=== PATIENT | male | born 1965 | race African-American/Black ===

== ENCOUNTER 2016-09-09 02:34 | Emergency (ER) | payer BC ==
[2016-09-09] MEDS ORDERED: NORMAL SALINE 1000 ML 1,000 ML IV PRN (02:48)
--- NOTE | 2016-09-09 02:52 | ER Document Report ---
ED Substance Abuse / Acc. OD - General TRAVEL OUTSIDE OF THE [place] IN LAST 30 DAYS: No <RAJ FARLEY - Last Filed: 09/09/16 03:46> <IVANIA WELSH - Last Filed: 09/09/16 06:21> - General Chief Complaint: ETOH Abuse Stated Complaint: POSSIBLE ETOH Time Seen by Provider: 09/09/16 02:46 Notes: Patient is a 50-year-old male, past medical history heavy intermittent alcohol use, cocaine use, presents by EMS after he was agitated and having hallucinations, witnessed by his . He said that he was drinking tequila, but denies drugs. His thinks that he used crack tonight. He was given 2.5 mg Versed, 50 mg Benadryl, 5 mg Haldol IM and a liter of fluids for the agitation and he is somnolent in the emergency room. Patient will awaken to voice, but denies any symptoms at this time. (RAJ FARLEY) - Related Data Allergies/Adverse Reactions: No Known Allergies Allergy (Unverified 10/04/11 05:34) Past Medical History - General Information source: Patient, Emergency Med Personnel - Social History Smoking Status: Current Every Day Smoker Drug Abuse: Cocaine Family History: Reviewed & Not Pertinent - Past Medical History Cardiac Medical History: Reports: Hx Hypertension - Immunizations Hx Diphtheria, Pertussis, Tetanus Vaccination: No <RAJ FARLEY E - Last Filed: 09/09/16 03:46> Review of Systems <RAJ FARLEY - Last Filed: 09/09/16 03:46> <IVANIA WELSH - Last Filed: 09/09/16 06:21> - Review of Systems Notes: REVIEW OF SYSTEMS: CONSTITUTIONAL: -fevers, -chills EENT: -eye pain, -difficulty swallowing, -nasal congestion CARDIOVASCULAR:-chest pain, -syncope. RESPIRATORY: -cough, -SOB GASTROINTESTINAL: -abdominal pain, - nausea, -vomiting, -diarrhea GENITOURINARY: -dysuria, -hematuria MUSCULOSKELETAL: -back pain, -neck pain SKIN: -rash or skin lesions. HEMATOLOGIC: -easy bruising or bleeding. LYMPHATIC: -swollen, enlarged glands. NEUROLOGICAL: -altered mental status or loss of consciousness, -headache, - neurologic symptoms PSYCHIATRIC: -anxiety, -depression. ALL OTHER SYSTEMS REVIEWED AND NEGATIVE. (RAJ FARLEY) Physical Exam <RAJ FARLEY - Last Filed: 09/09/16 03:46> <IVANIA WELSH - Last Filed: 09/09/16 06:21> - Vital signs Vitals: Resp BP 22 H 110/64 09/09/16 02:40 09/09/16 02:40 - Notes Notes: PHYSICAL EXAMINATION: GENERAL: Well-appearing, well-nourished and in no acute distress. HEAD: Atraumatic, normocephalic. EYES: Pupils constricted, extraocular movements intact, sclera anicteric, conjunctiva are normal. ENT: nares patent, oropharynx clear without exudates. Moist mucous membranes. NECK: Normal range of motion, supple without lymphadenopathy LUNGS: Breath sounds clear to auscultation bilaterally and equal. No wheezes rales or rhonchi. HEART: Tachycardia, regular rhythm ABDOMEN: Soft, nontender, normoactive bowel sounds. No guarding, no rebound. No masses appreciated. EXTREMITIES: Normal range of motion, no pitting or edema. No cyanosis. NEUROLOGICAL: Cranial nerves grossly intact. Normal speech, normal gait. Normal sensory and motor exams. PSYCH: Normal mood, normal affect. SKIN: Warm, Dry, normal turgor, no rashes or lesions noted. (RAJ FARLEY) Course - Laboratory Result Diagrams: 09/09/16 02:48 09/09/16 02:48 - EKG Interpretation by Or EKG shows normal: Sinus rhythm, Palmer, Intervals, QRS Complexes, ST-T Waves Rate: Tachycardia <RAJ FARLEY - Last Filed: 09/09/16 03:46> - Laboratory Result Diagrams: 09/09/16 02:48 09/09/16 02:48 <IVANIA WELSH - Last Filed: 09/09/16 06:21> - Re-evaluation Re-evalutation: Patient resting comfortably in the emergency room. He has a cocaine toxidrome with a mild tachycardia, constricted pupils, elevated CPK and initial agitation. He has mild YOLY and 2 LIVF were provided to him. Will continue to monitor and discharge patient once he is awake and able to ambulate. (RAJ FARLEY) 09/09/16 06:21 Patient is now awake and alert. He is acting appropriately. I did have a talk with the patient about drug use and how this could lead to his in the future and that he was likely that he did have more damage from what happened tonight. Patient's is in the room. Patient shows understanding of this. Patient is now able stand and walk without difficulty. Patient will be discharged home but is encouraged to return to ER anytime if he has any further concerns. is very kind and appreciative of his care here. (IVANIA WELSH) - Vital Signs Vital signs: Temp Pulse Resp BP Pulse Ox 98.6 F 114 H 20 124/90 H 97 09/09/16 02:46 09/09/16 02:46 09/09/16 06:01 09/09/16 06:00 09/09/16 06:01 - Laboratory Laboratory results interpreted by me: 09/09/16 09/09/16 09/09/16 02:46 02:48 02:48 RDW 15.3 H Seg Neutrophils % 81.9 H Sodium 145.8 H Chloride 109 H Creatinine 1.88 H Est GFR ( Amer) 47 L Est GFR (Non-Af Amer) 38 L Glucose 112 H POC Glucose 114 H Creatine Kinase 714 H Salicylates < 1.0 L Acetaminophen < 10 L Discharge <RAJ FARLEY - Last Filed: 09/09/16 03:46> <IVANIA WELSH - Last Filed: 09/09/16 06:21> - Discharge Clinical Impression: Alcohol abuse, Cocaine abuse Condition: Stable Additional Instructions: ACUTE ALCOHOL INTOXICATION and ALCOHOL ABUSE: Your evaluation revealed very high levels of alcohol. You can from drinking a large amount of alcohol rapidly! Further, there's the risk of falls , traffic accidents, and fights. A high portion (about 50 percent) of the serious injuries seen in hospital emergency rooms are caused by alcohol. Alcohol overdosage is usually due to an underlying emotional or psychiatric problem. You may benefit from counselling. If "binge" drinking is an ongoing problem for you, or if you drink ANY AMOUNT of alcohol EVERY day, you most likely have a tendency to alcoholism. You should avoid alcohol totally. We can refer you for treatment. Persons with alcohol problems are often also prone to other addictions -- you should discuss any use of medications or drugs with the doctor. You should be watched at home for the next several hours by someone who has not been drinking. Get extra fluids for the next 24 hours. Call the doctor if there is repeated vomiting, increasing headache, decreasing level of alertness, or any other worsening. CHRONIC ALCOHOLISM and ALCOHOL ABUSE: Your evaluation reveals evidence of chronic alcoholism, an addiction to alcohol. The tendency to alcoholism may be inherited. Chronic use of alcohol weakens muscles, causes fatty deposits in the liver , damages the stomach, makes you more prone to infections, and can cause defects in unborn children. In the long run, brain atrophy and cirrhosis of the liver result. You are also at greater risk for certain types of cancer, such as cancer of the mouth, throat, stomach, and liver. Counselling services are available to help you. In-hospital treatment programs often help. Support groups such as Alcoholics Anonymous can be very useful in beating this addiction. Your physician can make a referral for you. As alcoholics often are prone to other addictions, you should discuss your use of any other medications with the doctor. COCAINE ABUSE: Cocaine causes many dangerous medical problems. Problems can occur even with "usual" amounts. Cocaine affects judgement, creating a sense of invulnerability. Cocaine users often make bad decisions that seem "great" at the time. Most cocaine users eventually will be hurt by bad job performance, damaged personal relations, crime, and unsafe sexual practices. Toxic effects of cocaine can include seizures, hallucinations, delusions, high blood pressure, heart damage, or sudden . There's always the risk of a "bad batch." But heart attacks, brain hemorrhages, or cardiac arrest can occur unpredictably even with "normal" use. Injection of cocaine is risky for abscesses, endocarditis (heart infection) , pneumonia, and AIDS. Withdrawal from cocaine often causes anxiety and drug cravings. Some users become paranoid and psychotic. Many treatment programs are available, but you must make the decision to quit. Medication can be prescribed to control the symptoms of cocaine toxicity (beta blockers or benzodiazepines). Withdrawal symptoms may require tranquilizers. OVERDOSE / INGESTION: You have taken more medication than you should have. After your evaluation and care, it is felt that your overdose is not likely to be harmful or of any significant consequences to you and you are being discharged. In the future, you should be careful not to take more medications than what is prescribed for you. Although your overdose does not seem to be of any danger to you at this time, if you develop any unusual or unexpected symptoms after your discharge, you should return to the Emergency Department immediately for re-evaluation. INSTRUCTIONS FOR HOME CARE FOLLOWING DRUG OVERDOSAGE: The doctor feels it's safe for you to go home. You will need to be observed. If charcoal and a laxative was given to you, expect some loose black stools soon. Take no medications unless approved by a physician, including alcohol. If drowsy, lie on your stomach or side for sleeping to avoid aspiration if vomiting occurs. Take only liquids by mouth until there is no more nausea. FOR THE OBSERVER: Observe the patient for the next 24 hours and call or go to the hospital if any of the following are noted: prolonged or repeated vomiting, difficulty in arousing, convulsions (seizures or fits), fever, persistent cough, breathing that is too slow or too rapid, or confused or bizarre behavior. If a counselling visit has been arranged, make sure the patient attends. Call the physician or poison control if you have questions. FOLLOW-UP CARE: If you have been referred to a physician for follow-up care, call the physician s office for an appointment as you were instructed or within the next two days. If you experience worsening or a significant change in your symptoms, notify the physician immediately or return to the Emergency Department at any time for re-evaluation. Referrals: [facility] [Outside] - Follow up as needed
[2016-09-09 02:58] LABS: ABSOLUTE LYMPHOCYTES (AUTO) 0.9 10^3/uL (0.5-4.7); ABSOLUTE MONOCYTES (AUTO) 0.3 10^3/uL (0.1-1.4); ABSOLUTE NEUT (AUTO) 5.2 10^3/uL (1.7-8.2); BASOPHILS % (AUTO) 0.6 % (0-2); HEMOGLOBIN 13.6 g/dL (13.5-17.0); HGB HCT DIFFERENCE -0.2; LYMPHOCYTES % (AUTO) 13.5 % (13-45); MEAN CORPUSCULAR HEMOGLOBIN 31.3 pg (27.0-33.4); MEAN CORPUSCULAR HGB CONC 33.2 g/dL (32.0-36.0); MEAN CORPUSCULAR VOLUME 94 fl (80-97); RED BLOOD COUNT 4.36 10^6/uL (4.35-5.55); RED CELL DISTRIBUTION WIDTH 15.3 % (11.5-14.0); SEGMENTED NEUTROPHILS % (AUTO) 81.9 % (42-78); WHITE BLOOD COUNT 6.4 10^3/uL (4.0-10.5)
[2016-09-09 03:13] LABS: ALANINE AMINOTRANSFERASE 33 U/L (21-72); ALBUMIN 4.3 g/dL (3.5-5.0); ALCOHOL 31 mg/dL (NONE DETECTED); ALKALINE PHOSPHATASE 76 U/L (38-126); ANION GAP 14 (5-19); ASPARTATE AMINO TRANSFERASE 36 U/L (17-59); BILIRUBIN,DIRECT 0.3 mg/dL (0.0-0.4); BILIRUBIN,TOTAL 0.5 mg/dL (0.2-1.3); BLOOD UREA NITROGEN 16 mg/dL (7-20); CALCIUM 9.4 mg/dL (8.4-10.2); CARBON DIOXIDE 23 mmol/L (22-30); CHLORIDE 109 mmol/L (98-107); CREATINE KINASE 714 U/L (55-170); CREATININE RESULT 1.88 mg/dL (0.52-1.25); GLUCOSE 112 mg/dL (75-110); POTASSIUM 3.6 mmol/L (3.6-5.0); SODIUM 145.8 mmol/L (137-145); TOTAL PROTEIN 7.8 g/dL (6.3-8.2)
[2016-09-09 06:03] LABS: URINE BARBITURATES SCREEN NEGATIVE; URINE METHADONE SCREEN NEGATIVE; URINE OPIATES LOW NEGATIVE; URINE PHENCYCLIDINE SCREEN NEGATIVE
[2016-09-09 06:28] VITALS: BP 140/93
--- NOTE | 2016-09-09 07:52 | EKG REPORT ---
SEVERITY:- ABNORMAL ECG - SINUS TACHYCARDIA BORDERLINE R WAVE PROGRESSION, ANTERIOR LEADS PROLONGED QT INTERVAL : Confirmed by: Christopher Patel MD 09-Sep-2016 07:52:11
== END 2016-09-09 06:37 | disposition home or self-care (01) ==
LOC: ER 02:34
DX: F10.10 Alcohol abuse, uncomplicated (principal); F14.10 Cocaine abuse, uncomplicated; R00.0 Tachycardia, unspecified; R44.3 Hallucinations, unspecified; F17.200 Nicotine dependence, unspecified, uncomplicated
CPT/HCPCS: 93005; 99284; 36415; 82962; 80307 ×4; 82550; 85025; 80053; 93010; J7030

== ENCOUNTER 2017-06-28 06:28 | Inpatient (IN) | payer BC ==
--- NOTE | 2017-06-28 06:48 | ER Document Report ---
ED General - General Chief Complaint: Possible Overdose Stated Complaint: POSSIBLE DRUG INGESTION Time Seen by Provider: 06/28/17 06:47 Notes: 51-year-old -Faro[place] male to the emergency department stating that he feels like maybe he has been drug. Denies drug use but does state he is a recovering addict. Was seen here about 9 months ago for the same. Was found to have cocaine in his system. Patient states that he just does not feel right. Denies shortness of breath, body pain or other issues. TRAVEL OUTSIDE OF THE [place] IN LAST 30 DAYS: No - HPI Onset: Just prior to arrival Onset/Duration: Sudden Quality of pain: Achy Severity: Moderate Pain Level: 3 Associated symptoms: None - Related Data Allergies/Adverse Reactions: No Known Allergies Allergy (Unverified 10/04/11 05:34) Past Medical History - General Information source: Patient - Social History Smoking Status: Smoker,Current Status Unk Frequency of alcohol use: None Drug Abuse: Cocaine Lives with: Family Family History: Reviewed & Not Pertinent Patient has suicidal ideation: No Patient has homicidal ideation: No - Past Medical History Cardiac Medical History: Reports: Hx Hypertension Renal/ Medical History: Denies: Hx Peritoneal Dialysis - Immunizations Hx Diphtheria, Pertussis, Tetanus Vaccination: No Review of Systems - Review of Systems Constitutional: No symptoms reported EENT: No symptoms reported Cardiovascular: Palpitations, Dizziness, Lightheaded. denies: Chest pain Respiratory: No symptoms reported Gastrointestinal: No symptoms reported Genitourinary: No symptoms reported Male Genitourinary: No symptoms reported Musculoskeletal: No symptoms reported Skin: No symptoms reported Hematologic/Lymphatic: No symptoms reported Neurological/Psychological: Confusion. denies: Weakness, Paralysis, Seizure, Lost consciousness, Speech impairment, Numbness Physical Exam - Vital signs Vitals: Resp Pulse Ox 29 H 96 06/28/17 06:46 06/28/17 06:46 Interpretation: Tachycardic - General General appearance: Appears well, Alert - HEENT Head: Normocephalic, Atraumatic Eyes: Normal Pupils: PERRL - Respiratory Respiratory status: No respiratory distress Chest status: Nontender Breath sounds: Normal Chest palpation: Normal - Cardiovascular Rhythm: Tachycardia Heart sounds: Normal auscultation Murmur: No - Abdominal Inspection: Normal Distension: No distension Bowel sounds: Normal Tenderness: Nontender Organomegaly: No organomegaly - Back Back: Normal, Nontender - Extremities General upper extremity: Normal inspection, Nontender, Normal color, Normal ROM , Normal temperature General lower extremity: Normal inspection, Nontender, Normal color, Normal ROM , Normal temperature, Normal weight bearing. No: Maikel's sign - Neurological Neuro grossly intact: Yes Cognition: Normal Orientation: AAOx4 Kimball Coma Scale Eye Opening: Spontaneous Kimball Coma Scale Verbal: Oriented Gely Coma Scale Motor: Obeys Commands Kimball Coma Scale Total: 15 Speech: Normal Motor strength normal: LUE, RUE, LLE, RLE Sensory: Normal - Psychological Associated symptoms: Normal affect, Normal mood - Skin Skin Temperature: Warm Skin Moisture: Dry Skin Color: Normal Course - Re-evaluation Re-evalutation: 06/28/17 10:20 Patient tachycardic in the 130s. EKG shows a sinus tachycardia with no acute pathology. Anticipate patient is having some sort of sympathomimetic response from cocaine or methamphetamines. Urinalysis confirmed cocaine suspicion. Benzodiazepines given as well as IV fluids. Patient's creatinine kinase significantly elevated. Will repeat after liter of fluid. Chest x-ray unremarkable. Will repeat bolus of fluid and cardiac labs and reassess. 06/28/17 11:39 Patient has been reevaluated. Is resting comfortably at this time in no acute distress. Repeating basic labs at this time. 06/28/17 13:41 Repeat troponin slightly elevated. Creatinine kinase still elevated. At this time uncomfortable discharging. Consulted with Dr. Garrido who agrees to admit at this time. 06/28/17 13:42 Laboratory 06/28/17 06/28/17 06/28/17 06:50 06:50 06:50 WBC 10.4 RBC 4.58 Hgb 14.2 Hct 42.9 MCV 94 MCH 30.9 MCHC 33.0 RDW 15.4 H Plt Count 203 Seg Neutrophils % 74.7 Lymphocytes % 19.2 Monocytes % 5.2 Eosinophils % 0.0 Basophils % 0.9 Absolute Neutrophils 7.8 Absolute Lymphocytes 2.0 Absolute Monocytes 0.5 Absolute Eosinophils 0.0 Absolute Basophils 0.1 Sodium 149.0 H Potassium 4.4 Chloride 106 Carbon Dioxide 29 Anion Gap 14 BUN 13 Creatinine 1.23 Est GFR ( Amer) > 60 Est GFR (Non-Af Amer) > 60 Glucose 123 H Calcium 10.1 Total Bilirubin 0.4 Direct Bilirubin 0.3 Neonat Total Bilirubin Not Reportable Neonat Direct Bilirubin Not Reportable Neonat Indirect Bili Not Reportable AST 69 H ALT 51 Alkaline Phosphatase 84 Creatine Kinase 4418 H Total Creatine Kinase CK-MM (CK-3) CK-MB (CK-2) 8.86 H CK-BB (CK-1) Macro CK Type I Troponin I NT-Pro-B Natriuret Pep Total Protein 8.0 Albumin 4.6 Urine Color Urine Appearance Urine pH Ur Specific [place] Urine Protein Urine Glucose (UA) Urine Ketones Urine Blood Urine Nitrite Urine Bilirubin Urine Urobilinogen Ur Leukocyte Esterase Urine WBC (Auto) Urine RBC (Auto) U Hyaline Cast (Auto) Squamous Epi Cells Auto Urine Mucus (Auto) Urine Ascorbic Acid Urine Opiates Screen Urine Methadone Screen Ur Barbiturates Screen Ur Phencyclidine Scrn Ur Amphetamines Screen U Benzodiazepines Scrn Urine Cocaine Screen U Marijuana (THC) Screen Serum Alcohol 06/28/17 06/28/17 06/28/17 06:50 06:50 07:40 WBC RBC Hgb Hct MCV MCH MCHC RDW Plt Count Seg Neutrophils % Lymphocytes % Monocytes % Eosinophils % Basophils % Absolute Neutrophils Absolute Lymphocytes Absolute Monocytes Absolute Eosinophils Absolute Basophils Sodium Potassium Chloride Carbon Dioxide Anion Gap BUN Creatinine Est GFR ( Amer) Est GFR (Non-Af Amer) Glucose Calcium Total Bilirubin Direct Bilirubin Neonat Total Bilirubin Neonat Direct Bilirubin Neonat Indirect Bili AST ALT Alkaline Phosphatase Creatine Kinase Total Creatine Kinase CK-MM (CK-3) CK-MB (CK-2) CK-BB (CK-1) Macro CK Type I Troponin I 0.020 NT-Pro-B Natriuret Pep 197 H Total Protein Albumin Urine Color Urine Appearance Urine pH Ur Specific [place] Urine Protein Urine Glucose (UA) Urine Ketones Urine Blood Urine Nitrite Urine Bilirubin Urine Urobilinogen Ur Leukocyte Esterase Urine WBC (Auto) Urine RBC (Auto) U Hyaline Cast (Auto) Squamous Epi Cells Auto Urine Mucus (Auto) Urine Ascorbic Acid Urine Opiates Screen NEGATIVE Urine Methadone Screen NEGATIVE Ur Barbiturates Screen NEGATIVE Ur Phencyclidine Scrn NEGATIVE Ur Amphetamines Screen NEGATIVE U Benzodiazepines Scrn NEGATIVE Urine Cocaine Screen UNCONFIRMED POSITIVE U Marijuana (THC) Screen NEGATIVE Serum Alcohol < 10 06/28/17 06/28/17 06/28/17 07:40 10:44 10:44 WBC RBC Hgb Hct MCV MCH MCHC RDW Plt Count Seg Neutrophils % Lymphocytes % Monocytes % Eosinophils % Basophils % Absolute Neutrophils Absolute Lymphocytes Absolute Monocytes Absolute Eosinophils Absolute Basophils Sodium Potassium Chloride Carbon Dioxide Anion Gap BUN Creatinine Est GFR ( Amer) Est GFR (Non-Af Amer) Glucose Calcium Total Bilirubin Direct Bilirubin Neonat Total Bilirubin Neonat Direct Bilirubin Neonat Indirect Bili AST ALT Alkaline Phosphatase Creatine Kinase Cancelled Total Creatine Kinase CK-MM (CK-3) CK-MB (CK-2) CK-BB (CK-1) Macro CK Type I Troponin I Cancelled NT-Pro-B Natriuret Pep Total Protein Albumin Urine Color YELLOW Urine Appearance SLIGHTLY-CLOUDY Urine pH 6.0 Ur Specific [place] 1.016 Urine Protein 30 H Urine Glucose (UA) NEGATIVE Urine Ketones NEGATIVE Urine Blood SMALL H Urine Nitrite NEGATIVE Urine Bilirubin NEGATIVE Urine Urobilinogen NEGATIVE Ur Leukocyte Esterase NEGATIVE Urine WBC (Auto) 1 Urine RBC (Auto) 1 U Hyaline Cast (Auto) 16 Squamous Epi Cells Auto <1 Urine Mucus (Auto) RARE Urine Ascorbic Acid NEGATIVE Urine Opiates Screen Urine Methadone Screen Ur Barbiturates Screen Ur Phencyclidine Scrn Ur Amphetamines Screen U Benzodiazepines Scrn Urine Cocaine Screen U Marijuana (THC) Screen Serum Alcohol 06/28/17 06/28/17 06/28/17 10:44 11:49 11:49 WBC RBC Hgb Hct MCV MCH MCHC RDW Plt Count Seg Neutrophils % Lymphocytes % Monocytes % Eosinophils % Basophils % Absolute Neutrophils Absolute Lymphocytes Absolute Monocytes Absolute Eosinophils Absolute Basophils Sodium Potassium Chloride Carbon Dioxide Anion Gap BUN Creatinine Est GFR ( Amer) Est GFR (Non-Af Amer) Glucose Calcium Total Bilirubin Direct Bilirubin Neonat Total Bilirubin Neonat Direct Bilirubin Neonat Indirect Bili AST ALT Alkaline Phosphatase Creatine Kinase 4317 H Total Creatine Kinase Cancelled CK-MM (CK-3) Cancelled CK-MB (CK-2) Cancelled CK-BB (CK-1) Cancelled Macro CK Type I Cancelled Troponin I 0.040 NT-Pro-B Natriuret Pep Total Protein Albumin Urine Color Urine Appearance Urine pH Ur Specific [place] Urine Protein Urine Glucose (UA) Urine Ketones Urine Blood Urine Nitrite Urine Bilirubin Urine Urobilinogen Ur Leukocyte Esterase Urine WBC (Auto) Urine RBC (Auto) U Hyaline Cast (Auto) Squamous Epi Cells Auto Urine Mucus (Auto) Urine Ascorbic Acid Urine Opiates Screen Urine Methadone Screen Ur Barbiturates Screen Ur Phencyclidine Scrn Ur Amphetamines Screen U Benzodiazepines Scrn Urine Cocaine Screen U Marijuana (THC) Screen Serum Alcohol Chest X-Ray 06/28/17 06:55 IMPRESSION: No acute cardiopulmonary findings. - Vital Signs Vital signs: Temp Pulse Resp BP Pulse Ox 28 H 154/110 H 94 06/28/17 09:00 06/28/17 09:00 06/28/17 09:00 Laboratory 06/28/17 06/28/17 06/28/17 06:50 06:50 06:50 WBC 10.4 RBC 4.58 Hgb 14.2 Hct 42.9 MCV 94 MCH 30.9 MCHC 33.0 RDW 15.4 H Plt Count 203 Seg Neutrophils % 74.7 Lymphocytes % 19.2 Monocytes % 5.2 Eosinophils % 0.0 Basophils % 0.9 Absolute Neutrophils 7.8 Absolute Lymphocytes 2.0 Absolute Monocytes 0.5 Absolute Eosinophils 0.0 Absolute Basophils 0.1 Sodium 149.0 H Potassium 4.4 Chloride 106 Carbon Dioxide 29 Anion Gap 14 BUN 13 Creatinine 1.23 Est GFR ( Amer) > 60 Est GFR (Non-Af Amer) > 60 Glucose 123 H Calcium 10.1 Total Bilirubin 0.4 Direct Bilirubin 0.3 Neonat Total Bilirubin Not Reportable Neonat Direct Bilirubin Not Reportable Neonat Indirect Bili Not Reportable AST 69 H ALT 51 Alkaline Phosphatase 84 Creatine Kinase 4418 H CK-MB (CK-2) 8.86 H Troponin I NT-Pro-B Natriuret Pep Total Protein 8.0 Albumin 4.6 Urine Color Urine Appearance Urine pH Ur Specific [place] Urine Protein Urine Glucose (UA) Urine Ketones Urine Blood Urine Nitrite Urine Bilirubin Urine Urobilinogen Ur Leukocyte Esterase Urine WBC (Auto) Urine RBC (Auto) U Hyaline Cast (Auto) Squamous Epi Cells Auto Urine Mucus (Auto) Urine Ascorbic Acid Urine Opiates Screen Urine Methadone Screen Ur Barbiturates Screen Ur Phencyclidine Scrn Ur Amphetamines Screen U Benzodiazepines Scrn Urine Cocaine Screen U Marijuana (THC) Screen Serum Alcohol 06/28/17 06/28/17 06/28/17 06:50 06:50 07:40 WBC RBC Hgb Hct MCV MCH MCHC RDW Plt Count Seg Neutrophils % Lymphocytes % Monocytes % Eosinophils % Basophils % Absolute Neutrophils Absolute Lymphocytes Absolute Monocytes Absolute Eosinophils Absolute Basophils Sodium Potassium Chloride Carbon Dioxide Anion Gap BUN Creatinine Est GFR ( Amer) Est GFR (Non-Af Amer) Glucose Calcium Total Bilirubin Direct Bilirubin Neonat Total Bilirubin Neonat Direct Bilirubin Neonat Indirect Bili AST ALT Alkaline Phosphatase Creatine Kinase CK-MB (CK-2) Troponin I 0.020 NT-Pro-B Natriuret Pep 197 H Total Protein Albumin Urine Color Urine Appearance Urine pH Ur Specific [place] Urine Protein Urine Glucose (UA) Urine Ketones Urine Blood Urine Nitrite Urine Bilirubin Urine Urobilinogen Ur Leukocyte Esterase Urine WBC (Auto) Urine RBC (Auto) U Hyaline Cast (Auto) Squamous Epi Cells Auto Urine Mucus (Auto) Urine Ascorbic Acid Urine Opiates Screen NEGATIVE Urine Methadone Screen NEGATIVE Ur Barbiturates Screen NEGATIVE Ur Phencyclidine Scrn NEGATIVE Ur Amphetamines Screen NEGATIVE U Benzodiazepines Scrn NEGATIVE Urine Cocaine Screen UNCONFIRMED POSITIVE U Marijuana (THC) Screen NEGATIVE Serum Alcohol < 10 06/28/17 07:40 WBC RBC Hgb Hct MCV MCH MCHC RDW Plt Count Seg Neutrophils % Lymphocytes % Monocytes % Eosinophils % Basophils % Absolute Neutrophils Absolute Lymphocytes Absolute Monocytes Absolute Eosinophils Absolute Basophils Sodium Potassium Chloride Carbon Dioxide Anion Gap BUN Creatinine Est GFR ( Amer) Est GFR (Non-Af Amer) Glucose Calcium Total Bilirubin Direct Bilirubin Neonat Total Bilirubin Neonat Direct Bilirubin Neonat Indirect Bili AST ALT Alkaline Phosphatase Creatine Kinase CK-MB (CK-2) Troponin I NT-Pro-B Natriuret Pep Total Protein Albumin Urine Color YELLOW Urine Appearance SLIGHTLY-CLOUDY Urine pH 6.0 Ur Specific [place]rose 1.016 Urine Protein 30 H Urine Glucose (UA) NEGATIVE Urine Ketones NEGATIVE Urine Blood SMALL H Urine Nitrite NEGATIVE Urine Bilirubin NEGATIVE Urine Urobilinogen NEGATIVE Ur Leukocyte Esterase NEGATIVE Urine WBC (Auto) 1 Urine RBC (Auto) 1 U Hyaline Cast (Auto) 16 Squamous Epi Cells Auto <1 Urine Mucus (Auto) RARE Urine Ascorbic Acid NEGATIVE Urine Opiates Screen Urine Methadone Screen Ur Barbiturates Screen Ur Phencyclidine Scrn Ur Amphetamines Screen U Benzodiazepines Scrn Urine Cocaine Screen U Marijuana (THC) Screen Serum Alcohol Chest X-Ray 06/28/17 06:55 IMPRESSION: No acute cardiopulmonary findings. - Laboratory Result Diagrams: 06/28/17 06:50 06/28/17 06:50 Laboratory results interpreted by me: 06/28/17 06/28/17 06/28/17 06:50 06:50 06:50 RDW 15.4 H Sodium 149.0 H Glucose 123 H AST 69 H Creatine Kinase 4418 H CK-MB (CK-2) 8.86 H NT-Pro-B Natriuret Pep Urine Protein Urine Blood 06/28/17 06/28/17 06/28/17 06:50 07:40 11:49 RDW Sodium Glucose AST Creatine Kinase 4317 H CK-MB (CK-2) NT-Pro-B Natriuret Pep 197 H Urine Protein 30 H Urine Blood SMALL H - EKG Interpretation by Nd EKG shows normal: [place], Intervals, QRS Complexes, ST-T Waves Rate: Tachycardia Critical Care Note - Critical Care Note Total time excluding time spent on procedures (mins): 60 Comments: Tachycardia, hypertension, drug-induced toxicity Discharge - Discharge Clinical Impression: Cocaine abuse, Tachycardia Condition: Good Disposition: ADMITTED OBSERVATION Admitting Provider: [facility] Unit Admitted: Telemetry Referrals: GOLDIE CRONIN MD [Primary Care Provider] - Follow up as needed
[2017-06-28] MEDS ORDERED: LORAZEPAM INJ 2 MG/1 ML VIAL IV ONE (06:55)
[2017-06-28 07:05] LABS: ABSOLUTE BASOPHILS # (AUTO) 0.1 10^3/uL (0.0-0.2); ABSOLUTE MONOCYTES (AUTO) 0.5 10^3/uL (0.1-1.4); ABSOLUTE NEUT (AUTO) 7.8 10^3/uL (1.7-8.2); BASOPHILS % (AUTO) 0.9 % (0-2); HEMATOCRIT 42.9 % (37.9-51.0); HEMOGLOBIN 14.2 g/dL (13.5-17.0); LYMPHOCYTES % (AUTO) 19.2 % (13-45); MEAN CORPUSCULAR HEMOGLOBIN 30.9 pg (27.0-33.4); MEAN CORPUSCULAR VOLUME 94 fl (80-97); MONOCYTES % (AUTO) 5.2 % (3-13); PLATELET COUNT 203 10^3/uL (150-450); RED BLOOD COUNT 4.58 10^6/uL (4.35-5.55); RED CELL DISTRIBUTION WIDTH 15.4 % (11.5-14.0); SEGMENTED NEUTROPHILS % (AUTO) 74.7 % (42-78); TOTAL CELLS COUNTED % (AUTO) 100 %; WHITE BLOOD COUNT 10.4 10^3/uL (4.0-10.5)
[2017-06-28 07:25] LABS: ALANINE AMINOTRANSFERASE 51 U/L (21-72); ALBUMIN 4.6 g/dL (3.5-5.0); ALKALINE PHOSPHATASE 84 U/L (38-126); ANION GAP 14 (5-19); ASPARTATE AMINO TRANSFERASE 69 U/L (17-59); BILIRUBIN,DIRECT 0.3 mg/dL (0.0-0.4); BILIRUBIN,TOTAL 0.4 mg/dL (0.2-1.3); BLOOD UREA NITROGEN 13 mg/dL (7-20); CALCIUM 10.1 mg/dL (8.4-10.2); CARBON DIOXIDE 29 mmol/L (22-30); CHLORIDE 106 mmol/L (98-107); GLUCOSE 123 mg/dL (75-110); POTASSIUM 4.4 mmol/L (3.6-5.0)
--- NOTE | 2017-06-28 07:28 | RADIOLOGY REPORT (SQ) ---
EXAM DESCRIPTION: CHEST SINGLE VIEW CLINICAL HISTORY: 51 years Male, sob COMPARISON: 4.29.15. NUMBER OF VIEWS/TECHNIQUE: 1/AP FINDINGS: Adequate lung volume, clear parenchyma, normal cardiac silhouette, and intact bony thorax. IMPRESSION: No acute cardiopulmonary findings.
[2017-06-28 07:37] LABS: TROPONIN I 0.02 ng/mL
[2017-06-28 07:43] LABS: CREATINE KINASE 4418 U/L (55-170)
[2017-06-28 08:09] LABS: APPEARANCE,URINE SLIGHTLY-CLOUDY; BILIRUBIN,URINE NEGATIVE (NEGATIVE); COLOR,URINE YELLOW; GLUCOSE, URINE NEGATIVE (NEGATIVE); KETONES,URINE NEGATIVE (NEGATIVE); LEUKOCYTE ESTERASE,URINE NEGATIVE (NEGATIVE); NITRITE,URINE NEGATIVE (NEGATIVE); PROTEIN,URINE 30 mg/dL (NEGATIVE); URINE SPECIFIC GRAVITY 1.016; UROBILINOGEN,URINE NEGATIVE mg/dL (<2.0)
[2017-06-28 08:22] LABS: URINE AMPHETAMINES SCREEN NEGATIVE; URINE BARBITURATES SCREEN NEGATIVE; URINE BENZODIAZEPINES SCREEN NEGATIVE; URINE COCAINE SCREEN UNCONFIRMED POSITIVE; URINE MARIJUANA (THC) SCREEN NEGATIVE; URINE METHADONE SCREEN NEGATIVE; URINE PHENCYCLIDINE SCREEN NEGATIVE
--- NOTE | 2017-06-28 08:29 | EKG REPORT ---
SEVERITY:- OTHERWISE NORMAL ECG - SINUS TACHYCARDIA : Confirmed by: Christopher Patel MD 28-Jun-2017 08:28:38
[2017-06-28] MEDS ORDERED: NORMAL SALINE 1000 ML 1,000 ML IV ONE (10:07)
[2017-06-28 16:43] LABS: FREE T4 (FREE THYROXINE) 0.79 ng/dL (0.78-2.19)
[2017-06-28 16:50] LABS: ANION GAP 8 (5-19); BLOOD UREA NITROGEN 12 mg/dL (7-20); CALCIUM 9.5 mg/dL (8.4-10.2); CARBON DIOXIDE 32 mmol/L (22-30); CHLORIDE 106 mmol/L (98-107); GLUCOSE 89 mg/dL (75-110); SODIUM 145.5 mmol/L (137-145)
[2017-06-28 16:57] LABS: THYROID STIMULATING HORMONE 0.4 uIU/mL (0.47-4.68)
[2017-06-28] MEDS ORDERED: ENOXAPARIN SODIUM INJ 40 MG/0.4 ML DISP.SYRIN SUBCUT ONE (17:00)
[2017-06-28 18:43] LABS: CREATINE KINASE MB 9.79 ng/mL (<4.55); TROPONIN I 0.019 ng/mL
[2017-06-29 00:40] LABS: TROPONIN I < 0.012 ng/mL
[2017-06-29] MEDS: NORMAL SALINE 1000 ML 1,000 ML IV PRN ×2 (05:38→21:05)
[2017-06-29 07:19] LABS: TROPONIN I < 0.012 ng/mL
[2017-06-29] MEDS: FLUTICASONE NASAL SPRAY 50 MCG/SPRY 120 SPRAY/16 GM NAREB SCH ×2 (11:14→21:05)
[2017-06-29] MEDS: ENOXAPARIN SODIUM INJ 40 MG/0.4 ML DISP.SYRIN SUBCUT SCH (11:14)
[2017-06-29 13:19] LABS: TROPONIN I < 0.012 ng/mL
--- NOTE | 2017-06-29 14:26 | PDOC H&P ---
History of Present Illness Admission Date/PCP: 06/28/17 13:59 GOLDIE CRONIN MD Patient complains of: Not feel right History of Present Illness: DILMA CADENA is a 51 year old male This is a 51-year-old male with a history of the hypertension and hyperlipidemia came to the emergency department he thought somebody give her drugs to him in patients do not feel right Patient's denied any drug abuse in the past but according to the record but patient was seen in 9 months back in the ER for the same problems and patient urine drug screen is consistent with the cocaine Patient's troponin is elevated in patients CPK was elevated decided to admit for further evaluations for the rhabdomyolysis and possible cocaine induce some side effect and intoxications And I saw the patient's patients denied any chest pain denied any shortness of the breath denied any muscle ache patients feel like pretty much back to normal Past Medical History Cardiac Medical History: Reports: Hypertension Social History Lives with: Family Smoking Status: Current Every Day Smoker Hx Recreational Drug Use: Yes Drugs: Cocaine - Advance Directive Resuscitation Status: Full Code Family History Family History: Reviewed & Not Pertinent Parental Family History Reviewed: Yes Children Family History Reviewed: Yes Sibling(s) Family History Reviewed.: Yes Medication/Allergy Home Medications: Fluticasone Propionate [Flonase Nasal [place] 50 Mcg/[place] 16 gm] 1 spray NAREB Q12 06/28/17 Valsartan/Hydrochlorothiazide [Valsartan-Hctz 320-25 mg Tab] 1 tab PO DAILY Allergies/Adverse Reactions: No Known Allergies Allergy (Unverified 10/04/11 05:34) Review of Systems Constitutional: ABSENT: chills, fever(s), headache(s), weight gain, weight loss Eyes: ABSENT: visual disturbances Ears: ABSENT: hearing changes Cardiovascular: ABSENT: chest pain, dyspnea on exertion, edema, orthropnea, palpitations Respiratory: ABSENT: cough, hemoptysis Gastrointestinal: ABSENT: abdominal pain, constipation, diarrhea, hematemesis, hematochezia, nausea, vomiting Genitourinary: ABSENT: dysuria, hematuria Musculoskeletal: ABSENT: joint swelling Integumentary: ABSENT: rash, wounds Neurological: ABSENT: abnormal gait, abnormal speech, confusion, dizziness, focal weakness, syncope Psychiatric: ABSENT: anxiety, depression, homidical ideation, suicidal ideation Endocrine: ABSENT: cold intolerance, heat intolerance, menstrual abnormalities, polydipsia, polyuria Hematologic/Lymphatic: ABSENT: easy bleeding, easy bruising, lymphadenopathy Physical Exam Vital Signs: Temp Pulse Resp BP Pulse Ox 97.9 F 83 16 168/106 H 97 06/29/17 12:00 06/29/17 12:00 06/29/17 12:00 06/29/17 12:00 06/29/17 12:00 Intake & Output 06/28/17 06/29/17 06/30/17 06:59 06:59 06:59 Intake Total 1650 Balance 1650 Weight 123.3 kg General appearance: PRESENT: no acute distress, well-developed, well-nourished Head exam: PRESENT: atraumatic, normocephalic Eye exam: PRESENT: conjunctiva pink, EOMI, PERRLA. ABSENT: scleral icterus Ear exam: PRESENT: normal external ear exam Mouth exam: PRESENT: moist, tongue midline Neck exam: PRESENT: full ROM. ABSENT: carotid bruit, JVD, lymphadenopathy, thyromegaly Respiratory exam: PRESENT: clear to auscultation ander Cardiovascular exam: PRESENT: RRR. ABSENT: diastolic murmur, rubs, systolic murmur Pulses: PRESENT: normal dorsalis pedis pul, +2 pedal pulses bilateral Vascular exam: PRESENT: normal capillary refill GI/Abdominal exam: PRESENT: normal bowel sounds, soft. ABSENT: distended, guarding, mass, organolmegaly, rebound, tenderness Rectal exam: PRESENT: deferred Extremities exam: ABSENT: pedal edema Musculoskeletal exam: PRESENT: ambulatory Neurological exam: PRESENT: alert, awake, oriented to person, oriented to place , oriented to time, oriented to situation, CN II-XII grossly intact. ABSENT: motor sensory deficit Psychiatric exam: PRESENT: appropriate affect, normal mood. ABSENT: homicidal ideation, suicidal ideation Skin exam: PRESENT: dry, intact, warm. ABSENT: cyanosis, rash Results Laboratory Results: 06/28/17 16:20 06/28/17 16:20 Sodium 145.5 H Potassium 4.0 Chloride 106 Carbon Dioxide 32 H Anion Gap 8 BUN 12 Creatinine 1.02 Est GFR ( Amer) > 60 Est GFR (Non-Af Amer) > 60 Glucose 89 Calcium 9.5 06/28/17 06/28/17 06/29/17 17:56 17:56 00:06 Creatine Kinase 4903 H 5529 H CK-MB (CK-2) 9.79 H Troponin I 0.019 06/29/17 06/29/17 06/29/17 00:06 06:11 06:11 Creatine Kinase 4512 H CK-MB (CK-2) 11.30 H 13.30 H Troponin I < 0.012 < 0.012 06/29/17 06/29/17 12:29 12:29 Creatine Kinase 4454 H CK-MB (CK-2) 12.50 H Troponin I < 0.012 Impressions: Chest X-Ray 06/28/17 06:55 IMPRESSION: No acute cardiopulmonary findings. Assessment & Plan - Diagnosis (1) Rhabdomyolysis Qualifiers: Rhabdomyolysis type: non-traumatic Qualified Code(s): M62.82 - Rhabdomyolysis Is this a current diagnosis for this admission?: Yes Plan: Most likely a drug-induced rhabdomyolysis continues IV fluid (2) Hypertension Qualifiers: Hypertension type: essential hypertension Qualified Code(s): I10 - Essential (primary) hypertension Is this a current diagnosis for this admission?: Yes (3) Cocaine abuse Is this a current diagnosis for this admission?: Yes Plan: Discussed with the patient about the drug abuse patient's currently denied to be put the psych consult (4) Tachycardia Is this a current diagnosis for this admission?: Yes Plan: We will get the 2D echocardiogram and also get the CT angiogram - Time Time Spent: 30 to 50 Minutes Medications reviewed and adjusted accordingly: Yes Anticipated discharge: Home Within: Other - Inpatient Certification Medical Necessity: Need Close Monitoring Due to Risk of Patient Decompensation, Need For IV Fluids Post Hospital Care: D/C [employer] Documentation - Plan Summary Plan Summary: Continues to IV fluid we will consult the cardiology because cocaine induce toxicity to rule out underlying cardiac issues will get the CT angiogram
--- NOTE | 2017-06-29 16:21 | RADIOLOGY REPORT (SQ) ---
EXAM DESCRIPTION: CTA CHEST COMPLETED DATE/TIME: 06/29/2017 2:32 pm REASON FOR STUDY: chest pain COMPARISON: CT angio chest 10/21/2009 Chest films 10/04/2011, 06/28/2014, 06/28/2017 TECHNIQUE: CT scan of the chest performed using helical scanning technique with dynamic intravenous contrast injection. Images reviewed with lung, soft tissue and bone windows. Reconstructed coronal and sagittal MPR images reviewed. Additional 3 dimensional post-processing performed to develop Maximal Intensity Projection images (FL P). All images stored on PACS. All CT scanners at this facility use dose modulation, iterative reconstruction, and/or weight based d osing when appropriate to reduce radiation dose to as low as reasonably achievable (ALARA). [facility]: Dose Right [facility]: CareDose [facility]: Dose Right [facility]: Teradose 4D [facility]: Dyn CONTRAST TYPE AND DOSE: contrast/concentration: Isovue 370.00 mg/ml; Total Contrast Delivered: 78.0 ml; Total Saline Delivered: 110.0 ml Contrast bolus optimized for the pulmonary arteries. Not diagnostic for the aorta. RENAL FUNCTION: Creatinine 1.0 RADIATION DOSE: CT Rad equipment meets quality standard of care and radiation dose reduction techniq ues were employed. CTDIvol: 11.3 - 15.5 mGy. DLP: 553 mGy-cm. . LIMITATIONS: Limited contrast bolus, thoracic aorta not effectively contrasted. Limited contrast in the pulmonary arteries FINDINGS: LUNGS AND PLEURA: No masses, infiltrates, pneumothorax. No pleural effusions, calcificati ons. AORTA AND GREAT VESSELS: No aneurysm. Contrast bolus not optimized for the aorta. HEART: No pericardial effusion. Moderate proximal LAD coronary artery calcification. PULMONARY ARTERIES: No emboli visualized in the main pulmonary arteries or the proximal segmental bra nches. HILAR AND MEDIASTINAL STRUCTURES: No identified masses or abnormal nodes. HARDWARE: None in the chest. UPPER ABDOMEN: No significant findings. Limited exam. THYROID AND OTHER SOFT TISSUES: No masses. No adenopathy. BONES: No acute or significant finding. 3D MIPS: Confirm above findings. OTHER: No other significant finding. IMPRESSION: No acute findings. No CT angio evidence of acute pulmonary emboli to the main, right or left lobar, or proximal segmental pulmonary arteries. COMMENT: Quality ID # [id number]: Final reports with documentation of one or more dose reduction techniques (e.g., Automated exposure control, adjustment of the mA and/or kV according to patient size, use of iterative reconstruction technique) TECHNICAL DOCUMENTATION: JOB ID: [id number] [email or web address]- All Rights Reserved Reading location - IP/workstation name: [facility]
[2017-06-29 19:35] LABS: CREATINE KINASE MB 9.62 ng/mL (<4.55)
[2017-06-29 19:40] LABS: TROPONIN I < 0.012 ng/mL
[2017-06-29] MEDS: VALSARTAN 160 MG TABLET PO SCH (21:06)
[2017-06-30 02:06] LABS: CREATINE KINASE MB 7.65 ng/mL (<4.55)
[2017-06-30 02:12] LABS: TROPONIN I < 0.012 ng/mL
[2017-06-30 06:19] LABS: ABSOLUTE BASOPHILS # (AUTO) 0.1 10^3/uL (0.0-0.2); ABSOLUTE EOSINOPHILS # (AUTO) 0.1 10^3/uL (0.0-0.6); ABSOLUTE LYMPHOCYTES (AUTO) 2.3 10^3/uL (0.5-4.7); ABSOLUTE MONOCYTES (AUTO) 0.3 10^3/uL (0.1-1.4); ABSOLUTE NEUT (AUTO) 2.2 10^3/uL (1.7-8.2); BASOPHILS % (AUTO) 1.5 % (0-2); EOSINOPHILS % (AUTO) 1.7 % (0-6); HEMATOCRIT 38.8 % (37.9-51.0); HEMOGLOBIN 12.9 g/dL (13.5-17.0); LYMPHOCYTES % (AUTO) 46.1 % (13-45); MEAN CORPUSCULAR HGB CONC 33.3 g/dL (32.0-36.0); MEAN CORPUSCULAR VOLUME 93 fl (80-97); MONOCYTES % (AUTO) 6.1 % (3-13); PLATELET COUNT 168 10^3/uL (150-450); RED BLOOD COUNT 4.17 10^6/uL (4.35-5.55); RED CELL DISTRIBUTION WIDTH 15.6 % (11.5-14.0); SEGMENTED NEUTROPHILS % (AUTO) 44.6 % (42-78); TOTAL CELLS COUNTED % (AUTO) 100 %
[2017-06-30 06:42] LABS: ANION GAP 8 (5-19); BLOOD UREA NITROGEN 15 mg/dL (7-20); CALCIUM 8.8 mg/dL (8.4-10.2); CARBON DIOXIDE 28 mmol/L (22-30); CHLORIDE 108 mmol/L (98-107); GLUCOSE 108 mg/dL (75-110); POTASSIUM 4.4 mmol/L (3.6-5.0); SODIUM 143.7 mmol/L (137-145)
--- NOTE | 2017-06-30 09:07 | XCELERA REPORT ---
[address] [address] Transthoracic Echocardiogram Report Name: DILMA CADENA Age: 51 yrs Gender: Male : 1965 Patient Status: Inpatient Patient Location: [address] [place] [address] Study Date: 06/29/2017 03:07 PM Height: 69 in Weight: 271 lb BSA: 2.4 m2 Procedure: A complete two-dimensional transthoracic echocardiogram was performed (2D, M-mode, spectral and color flow Doppler). The study was technically adequate with some images being suboptimal in quality. Reason For Study: chest pain Ordering Physician: GOLDIE CRONIN Performed By: Bernadine Garcia Interpretation Summary The left ventricular ejection fraction is within normal limits. There is mild concentric left ventricular hypertrophy. The left ventricle is grossly normal size. Doppler measurements suggest pseudonormalized left ventricular relaxation, which is associated with grade II/IV or mild to moderate diastolic dysfunction Wall motion cannot be accurately commented on, but no definite regional wall motion abnormalities noted. The right ventricle is grossly normal size. The right atrium is normal in size The left atrial size is normal. There is no mitral valve stenosis. There is a trace amount of mitral regurgitation There is no aortic valve stenosis No aortic regurgitation is present. There is a trace or physiologic amount of tricuspid regurgitation Tricuspid regurgitation jet envelope not well defined to measure RV systolic pressure accurately. The aortic root is not well visualized but is probably normal size. The inferior vena cava appeared normal and decreased > 50% with respiration (RAP 5-10 mmHg) There is no pericardial effusion. MMode/2D Measurements & Calculations RVDd: 3.5 cm LVIDd: 4.6 cmFS: 40.9 % Ao root diam: 3.9 cm IVSd: 1.1 cm LVIDs: 2.7 cmEDV(Teich): 99.0 ml LVPWd: 1.1 cmESV(Teich): 27.9 ml Ao root area: 12.0 cm2 EF(Teich): 71.8 % LA dimension: 2.7 cm LVOT diam: 2.3 cm LVOT area: 4.3 cm2 Doppler Measurements & Calculations MV E max levi: MV P1/2t max levi: Ao V2 max: LV V1 max P.9 cm/sec 83.0 cm/sec 130.3 cm/sec 4.9 mmHg MV A max levi: MV P1/2t: 59.3 msec Ao max PG: LV V1 max: 57.2 cm/sec MVA(P1/2t): 3.7 cm2 6.8 mmHg 110.8 cm/sec MV E/A: 1.4 MV dec slope: POP(V,D): 3.7 cm2 409.9 cm/sec2 PA V2 max: 63.4 cm/sec PA max P.6 mmHg Left Ventricle The left ventricle is grossly normal size. There is mild concentric left ventricular hypertrophy. The left ventricular ejection fraction is within normal limits. Doppler measurements suggest pseudonormalized left ventricular relaxation, which is associated with grade II/IV or mild to moderate diastolic dysfunction. Wall motion cannot be accurately commented on, but no definite regional wall motion abnormalities noted. Right Ventricle The right ventricle is grossly normal size. There is normal right ventricular wall thickness. The right ventricular systolic function is normal. Atria The right atrium is normal in size. The left atrial size is normal. Interarterial septum not well visualized and not well dopplered. Cannot comment on ASD/PFO presence. Mitral Valve The mitral valve leaflets are sclerotic, but show no functional abnormalities. There is no mitral valve stenosis. There is a trace amount of mitral regurgitation. Aortic Valve The aortic valve is grossly normal. There is no aortic valve stenosis. No aortic regurgitation is present. Tricuspid Valve The tricuspid valve is not well visualized, but is grossly normal. There is no tricuspid stenosis. There is a trace or physiologic amount of tricuspid regurgitation. Tricuspid regurgitation jet envelope not well defined to measure RV systolic pressure accurately. Pulmonic Valve The pulmonic valve is not well visualized. Great Vessels The aortic root is not well visualized but is probably normal size. The inferior vena cava appeared normal and decreased > 50% with respiration (RAP 5-10 mmHg). Effusions There is no pericardial effusion. : GOLDIE CRONIN > Agnieszka Prasad
--- NOTE | 2017-06-30 10:04 | Physician Advisory Note ---
Physician Advisor ProgressNote .: [facility] I have reviewed the medical record for this patient. Physician Advisor Statement: Not every pt with rhabdomyolysis (or cocaine intox) requires ECHO, or stress testing, cardiology consult, or CT-A. Payers will be happy to impugn your appropriate medical reasoning if it is not explicitly spelled out, & to assert that this additional workup would have been better to be done after d/c so as to pay less for pt's stay. Attending, please document: 1. Reasons this patient required additional workup above - what made you more concerned than with the usual (+)cocaine rhabdo pt, even though the patient was "feeling back to normal" already by 06/29 AM. 2. Reasons this patient continued to need IVF once CK <5000 again. 3. If an attending expresses concern about a pt's hypoxemia and orders O2 (as opposed to nurse simply giving O2 without an order, as was done 06/28 in this case), that will better support higher severity of illness, reasoning for not discharging patient yet, and possible upgrading of status. Status: from standpoint of acute rhabdomyolysis, this pt was appropriate for Obs status for 1 night. From the standpoint of Acute Cocaine intoxication, this pt was appropraite for Obs status for 1 night. However, this [facility] insurance patient has now been kept x 2 nights, with additional workup looking for possible PE and cardiac problem. If attending documents clinical reasons why this patient, during this stay, requires ECHO, stress testing, cardiology consult - what it is that makes him feel the need "to rule out underlying heart issues" before discharge - then it is possible that patient may become appropriate for upgraded status. Thanks! CK Potential sources of attending concern seen by this reviewer so far: Pt with episodes of hypoxemia down to 89% & 86% without clear etiology on 06/28, and again down to 91% on 06/29 AM (though by then w/HR 60s & nl BP). - Concern for acute CHF needing further eval before d/c? Concern for TRISHA ( outpt eval)? Pt with diaphoresis associated with the desats on 06/28 mid-AM. - Concern for ACS, ...? Pt w/troponin leak early on that peaked w/trop I #2 (though in setting of acute rhabdomyolysis). - Concern for ACS, ...? Pt w/persistent tachycardia & tachypnea on 06/28 (though w/acute cocaine intox, which could explain it).... Pt w/dizziness, light-headedness, and confusion on 06/28 (though w/acute cocaine intox....) Pt w/initial Na 149, indicating likely intravascular volume depletion, which increases the risk for YOLY from rhabdomyolysis.
[2017-06-30] MEDS: ENOXAPARIN SODIUM INJ 40 MG/0.4 ML DISP.SYRIN SUBCUT SCH (11:08)
[2017-06-30] MEDS: FLUTICASONE NASAL SPRAY 50 MCG/SPRY 120 SPRAY/16 GM NAREB SCH ×2 (11:09→21:48)
[2017-06-30] MEDS: VALSARTAN 160 MG TABLET PO SCH ×2 (11:09→21:48)
--- NOTE | 2017-06-30 12:52 | PDOC PROGRESS REPORT ---
Subjective Progress Note for:: 06/30/17 Subjective:: Patient is currently doing well Patient CT angiogram was all stable Scheduled for the echo and stress test today Reason For Visit: COCAINE INTOXICATON, RHABDOMYOLYSIS Physical Exam Vital Signs: Temp Pulse Resp BP Pulse Ox 97.7 F 72 19 140/91 H 100 06/30/17 12:00 06/30/17 12:00 06/30/17 12:00 06/30/17 12:00 06/30/17 12:00 Intake & Output 06/29/17 06/30/17 07/01/17 06:59 06:59 06:59 Intake Total 1650 2170 Balance 1650 2170 Weight 123.3 kg 115.9 kg General appearance: PRESENT: no acute distress, well-developed, well-nourished Head exam: PRESENT: atraumatic, normocephalic Eye exam: PRESENT: conjunctiva pink, EOMI, PERRLA. ABSENT: scleral icterus Ear exam: PRESENT: normal external ear exam Mouth exam: PRESENT: moist, tongue midline Neck exam: PRESENT: full ROM. ABSENT: carotid bruit, JVD, lymphadenopathy, thyromegaly Respiratory exam: PRESENT: clear to auscultation ander Cardiovascular exam: PRESENT: RRR. ABSENT: diastolic murmur, rubs, systolic murmur Pulses: PRESENT: normal dorsalis pedis pul, +2 pedal pulses bilateral Vascular exam: PRESENT: normal capillary refill GI/Abdominal exam: PRESENT: normal bowel sounds, soft. ABSENT: distended, guarding, mass, organolmegaly, rebound, tenderness Rectal exam: PRESENT: deferred Extremities exam: ABSENT: pedal edema Musculoskeletal exam: PRESENT: ambulatory Neurological exam: PRESENT: alert, awake, oriented to person, oriented to place , oriented to time, oriented to situation, CN II-XII grossly intact. ABSENT: motor sensory deficit Psychiatric exam: PRESENT: appropriate affect, normal mood. ABSENT: homicidal ideation, suicidal ideation Skin exam: PRESENT: dry, intact, warm. ABSENT: cyanosis, rash Results Laboratory Results: 06/30/17 05:46 06/30/17 05:46 06/30/17 06/30/17 05:46 05:46 WBC 5.0 RBC 4.17 L Hgb 12.9 L Hct 38.8 MCV 93 MCH 31.0 MCHC 33.3 RDW 15.6 H Plt Count 168 Seg Neutrophils % 44.6 Lymphocytes % 46.1 H Monocytes % 6.1 Eosinophils % 1.7 Basophils % 1.5 Absolute Neutrophils 2.2 Absolute Lymphocytes 2.3 Absolute Monocytes 0.3 Absolute Eosinophils 0.1 Absolute Basophils 0.1 Sodium 143.7 Potassium 4.4 Chloride 108 H Carbon Dioxide 28 Anion Gap 8 BUN 15 Creatinine 0.86 Est GFR ( Amer) > 60 Est GFR (Non-Af Amer) > 60 Glucose 108 Calcium 8.8 06/28/17 06/28/17 06/29/17 17:56 17:56 00:06 Creatine Kinase 4903 H 5529 H CK-MB (CK-2) 9.79 H Troponin I 0.019 06/29/17 06/29/17 06/29/17 00:06 06:11 06:11 Creatine Kinase 4512 H CK-MB (CK-2) 11.30 H 13.30 H Troponin I < 0.012 < 0.012 06/29/17 06/29/17 06/29/17 12:29 12:29 18:50 Creatine Kinase 4454 H 3956 H CK-MB (CK-2) 12.50 H Troponin I < 0.012 06/29/17 06/30/17 06/30/17 18:50 01:06 01:06 Creatine Kinase 2987 H CK-MB (CK-2) 9.62 H 7.65 H Troponin I < 0.012 < 0.012 Impressions: Chest X-Ray 06/28/17 06:55 IMPRESSION: No acute cardiopulmonary findings. Chest/Abdomen CTA 06/29/17 00:00 IMPRESSION: No acute findings. No CT angio evidence of acute pulmonary emboli to the main, right or left lobar, or proximal segmental pulmonary arteries. Assessment & Plan - Diagnosis (1) Rhabdomyolysis Qualifiers: Rhabdomyolysis type: non-traumatic Qualified Code(s): M62.82 - Rhabdomyolysis Is this a current diagnosis for this admission?: Yes Plan: Most likely a drug-induced rhabdomyolysis continues IV fluid (2) Hypertension Qualifiers: Hypertension type: essential hypertension Qualified Code(s): I10 - Essential (primary) hypertension Is this a current diagnosis for this admission?: Yes (3) Cocaine abuse Is this a current diagnosis for this admission?: Yes Plan: Discussed with the patient about the drug abuse patient's currently denied to be put the psych consult (4) Tachycardia Is this a current diagnosis for this admission?: Yes Plan: Currently all stable - Time Time Spent with patient: 15-24 minutes Medications reviewed and adjusted accordingly: Yes Anticipated discharge: Home Within: within 24 hours - Inpatient Certification Medical Necessity: Need Close Monitoring Due to Risk of Patient Decompensation, Need For IV Fluids 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
--- NOTE | 2017-06-30 13:21 | DRAGON STRESS TEST REPORT ---
INTRAVENOUS LEXISCAN CARDIOLITE STRESS TEST USING SINGLE PHOTON EMMISION COMPUTERIZED TOMOGRAPHIC. DATE OF PROCEDURE: June 30, 2017, INDICATION : Chest pain CARDIAC RISK FACTORS: Hypertension, tobacco abuse RESTING EKG: Sinus rhythm without any significant baseline ST-T wave changes. STRESS EKG: No significant ST segment changes noted with LexiScan bolus REASON FOR TERMINATION: Protocol. PROCEDURE REPORT: Baseline heart rate 69 beats per minute with blood pressure of 166/110. Patient had no significant complaints. Patient was bolused with Lexiscan 0.4 mg intravenously followed by saline bolus. Heart rate at 2 minutes post bolus 98 with a blood pressure of 177/101. 3 minutes post bolus heart rate 78 with blood pressure of 173/93. No significant EKG changes were noted. Patient had no significant complaints during the procedure or postprocedure. Patient injected with Aminophyllin 75 mg at 3 minutes or later after Lexiscan bolus. CONCLUSIONS: Normal EKG and hemodynamic response to IV LexiScan. NUCLEAR DATA: At rest the patient was given 14.14 millicuries of technetium 99 sestamibi injected intravenously. As per protocol rest gated SPECT images were obtained. On day of stress test, the patient was given intravenous LexiScan at a dose of 0.4 mg in 5 mL intravenously, followed by flush with normal saline. Subsequently the stress dose of 49 millicuries of technetium 99 sestamibi was injected intravenously. As per protocol stress gated images were obtained. NUCLEAR INTERPRETATION: Both raw and processed data were used for interpretation. Visual, qualitative, computer-generated quantitative data was used. There was good myocardial uptake of technetium compound. Motion artifact and soft tissue attenuations were noted. Increased visceral uptake was noted. No definitive areas of transient perfusion defect noted, No definitive areas of fixed perfusion defect or scars noted. Significant increased diaphragmatic attenuation artifact was noted and it caused some difficulty with the interpretation of the inferior wall perfusion but as noted above no definite ischemia or scar findings noted EKG gated imaging showed LV EF at 46 %, rest and stress gated EF similar visually. T. I D. ratio was 0.97. Lung heart ratio noted to be within normal limits 0.25. No significant extracardiac and abnormal radiotracer activities were noted. RV free wall uptake was noted to be WNL. IMPRESSION: Also refer to comments under nuclear interpretation. Also test results needs to be interpreted in the context of pretest probability. 1. No definitive areas of transient perfusion defect noted. 2. There is no definitive scintigraphic evidence of myocardial infarction/scar. 3. EKG gated imaging shows left ventricular ejection fraction of approx. 46 %. 4. Clinical correlation requested as occasionally single vessel disease or balanced ischemia could be missed. In approximately 10% of the cases Lexiscan may not cause adequate vasodilatory stress. RECOMMENDATIONS: Aggressive risk factor modification and medical management. Further evaluation may be needed if continued symptoms or other high risk indicators are noted on clinical evaluation. Close cardiology follow-up is also recommended. Clinical correlation with echocardiogram derived ejection fraction. Inability to exercise by itself can lead to increased cardiovascular event risks. Consider cardiology consultation and or follow-up if clinically indicated. I am available for cardiology evaluation and consultation if requested by the lead painter, unless patient already has a marketing account manager. [place]
[2017-06-30] MEDS ORDERED: REGADENOSON INJ 0.4 MG/5 ML DISP.SYRIN IV ONE (15:25)
[2017-06-30] MEDS ORDERED: AMINOPHYLLINE INJ/PF 250 MG/10 ML SDV IV ONE (15:25)
[2017-06-30] MEDS: NORMAL SALINE 1000 ML 1,000 ML IV PRN ×2 (17:23→21:49)
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
--- NOTE | 2017-06-30 22:38 | EKG REPORT ---
SEVERITY:- BORDERLINE ECG - SINUS RHYTHM CONSIDER ANTERIOR INFARCT BORDERLINE T ABNORMALITIES, INFERIOR LEADS : Confirmed by: Agnieszka Prasad 30-Jun-2017 22:37:39
[2017-07-01 07:22] LABS: ANION GAP 6 (5-19); BLOOD UREA NITROGEN 13 mg/dL (7-20); CALCIUM 9.4 mg/dL (8.4-10.2); CARBON DIOXIDE 29 mmol/L (22-30); CHLORIDE 108 mmol/L (98-107); GLUCOSE 111 mg/dL (75-110); POTASSIUM 4.4 mmol/L (3.6-5.0); SODIUM 143.3 mmol/L (137-145)
[2017-07-01 07:38] LABS: CREATINE KINASE 2128 U/L (55-170)
[2017-07-01 08:54] VITALS: BP 143/82
[2017-07-01] MEDS: VALSARTAN 160 MG TABLET PO SCH (11:01)
[2017-07-01] MEDS: FLUTICASONE NASAL SPRAY 50 MCG/SPRY 120 SPRAY/16 GM NAREB SCH (11:02)
[2017-07-01] MEDS: ENOXAPARIN SODIUM INJ 40 MG/0.4 ML DISP.SYRIN SUBCUT SCH (11:03)
--- NOTE | 2017-07-01 13:29 | PDOC DISCHARGE SUMMARY ---
General - Admit/Disc Date/PCP Admission Date/Primary Care Provider: 06/30/17 17:09 GOLDIE CRONIN MD Discharge Date: 07/01/17 - Discharge Diagnosis (1) Rhabdomyolysis Is this a current diagnosis for this admission?: Yes Summary: Currently all resolving discussed with the patient about drink plenty of water (2) Hypertension Is this a current diagnosis for this admission?: Yes Summary: Currently all stable (3) Cocaine abuse Is this a current diagnosis for this admission?: Yes Summary: Discussed with the patient about not Use cocaine anymoreAnd so far patient all test is negative's's to further evaluate by the psych as outpatient for substance abuse (4) Tachycardia Is this a current diagnosis for this admission?: Yes Summary: Currently all resolved patient have a negative stress test CT angiogram is negative no sign of any cocaine induce any toxicity - Additional Information Resuscitation Status: Full Code Discharge Diet: Regular Discharge Activity: Activity As Tolerated Home Medications: Fluticasone Propionate [Flonase Nasal Mahomet 50 Mcg/Mahomet 16 gm] 1 spray NAREB Q12 06/28/17 Valsartan/Hydrochlorothiazide [Valsartan-Hctz 320-25 mg Tab] 1 tab PO DAILY History of Present Illness History of Present Illness: DILMA CADENA is a 51 year old male This is a 51-year-old male with a history of the hypertension and hyperlipidemia came to the emergency department he thought somebody give her drugs to him in patients do not feel right Patient's denied any drug abuse in the past but according to the record but patient was seen in 9 months back in the ER for the same problems and patient urine drug screen is consistent with the cocaine Patient's troponin is elevated in patients CPK was elevated decided to admit for further evaluations for the rhabdomyolysis and possible cocaine induce some side effect and intoxications And I saw the patient's patients denied any chest pain denied any shortness of the breath denied any muscle ache patients feel like pretty much back to normal Hospital Course Hospital Course: This is a 51-year-old male with a history of the cocaine abuse came to the emergency department not feeling well possible chest pain patient admitting in the hospital for further evaluation underwent a CT angiogram was all negative and a stress test was also negative Reason also found the rhabdomyolysis which is started on IV fluid and CPK level is coming down in patients doing well Patient is walking the hallway is doing well p.o. intake is good and patient's desire to go home and discussed with the patient about to drink plenty of water and following a one-week Patient seen by the cardiology and follow outpatient Physical Exam Vital Signs: Temp Pulse Resp BP Pulse Ox 98.1 F 62 13 143/82 H 99 07/01/17 11:10 07/01/17 11:10 07/01/17 11:10 07/01/17 11:10 07/01/17 11:10 Intake & Output 06/30/17 07/01/17 07/02/17 06:59 06:59 06:59 Intake Total 4470 Balance 4470 Weight 116.8 kg General appearance: PRESENT: no acute distress, well-developed, well-nourished Head exam: PRESENT: atraumatic, normocephalic Eye exam: PRESENT: conjunctiva pink, EOMI, PERRLA. ABSENT: scleral icterus Ear exam: PRESENT: normal external ear exam Mouth exam: PRESENT: moist, tongue midline Neck exam: PRESENT: full ROM. ABSENT: carotid bruit, JVD, lymphadenopathy, thyromegaly Respiratory exam: PRESENT: clear to auscultation ander Cardiovascular exam: PRESENT: RRR. ABSENT: diastolic murmur, rubs, systolic murmur Pulses: PRESENT: normal dorsalis pedis pul, +2 pedal pulses bilateral Vascular exam: PRESENT: normal capillary refill GI/Abdominal exam: PRESENT: normal bowel sounds, soft. ABSENT: distended, guarding, mass, organolmegaly, rebound, tenderness Rectal exam: PRESENT: deferred Extremities exam: ABSENT: full ROM, left AKA, right AKA, left BKA, right BKA, calf tenderness, joint swelling, pedal edema, tenderness, other Musculoskeletal exam: PRESENT: ambulatory Neurological exam: PRESENT: alert, awake, oriented to person, oriented to place , oriented to time, oriented to situation, CN II-XII grossly intact. ABSENT: motor sensory deficit Psychiatric exam: PRESENT: appropriate affect, normal mood. ABSENT: homicidal ideation, suicidal ideation Skin exam: PRESENT: dry, intact, warm. ABSENT: cyanosis, rash Results Laboratory Results: 07/01/17 06:17 07/01/17 06:17 Sodium 143.3 Potassium 4.4 Chloride 108 H Carbon Dioxide 29 Anion Gap 6 BUN 13 Creatinine 0.92 Est GFR ( Amer) > 60 Est GFR (Non-Af Amer) > 60 Glucose 111 H Calcium 9.4 07/01/17 06:17 Creatine Kinase 2128 H Impressions: Chest X-Ray 06/28/17 06:55 IMPRESSION: No acute cardiopulmonary findings. Chest/Abdomen CTA 06/29/17 00:00 IMPRESSION: No acute findings. No CT angio evidence of acute pulmonary emboli to the main, right or left lobar, or proximal segmental pulmonary arteries. Qualifiers - * PATIENT BEING DISCHARGED WITH ANY OF THE FOLLOWING DIAGNOSIS: No VTE patient discharged on overlapping Therapy?: Yes Plan Time Spent: Greater than 30 Minutes - Discharge home with the stable conditions discussed with the patient about plenty of water following a one-week in office and repeat the Chem-7 and CPK level Follow with the psychiatrist for substance abuse
--- NOTE | 2017-07-01 13:57 | PSYCHOLOGICAL NOTE ---
Psych Note - Psych Note Psych Note: Reason for consult: substance abuse DILMA CADENA is a 51 year old male with a history of the hypertension and hyperlipidemia came to the emergency department because he thought somebody give him drugs. Patient's denied any drug abuse in the past but according to the record but the patient was seen 9 months back in the ED for the same problems; patient urine drug screen is consistent with the cocaine. Patient was discharged prior to being seen by the Behavioral Health Team.
--- NOTE | 2017-07-02 12:14 | PDOC PROGRESS REPORT ---
Subjective Progress Note for:: 07/01/17 Subjective:: Patient was seen on morning of 01 July. This was to discuss results of nuclear stress test. Patient seems to be doing better. Pt is denying any chest arm or neck discomfort. Patient denying any PND, orthopnea. Patient denied any sustained palpitations, dizziness, syncope, near syncope. Patient denying any fever chills. Patient denying any other significant discomfort. Patient is maintaining sinus rhythm. Review of systems: Rest review of systems negative. Medications: Medications have been reviewed. Reason For Visit: RHABDOMYOLYSIS,COCAINE INTOXICATION,HYPERTENSION Physical Exam Vital Signs: Temp Pulse Resp BP Pulse Ox 98.1 F 62 13 143/82 H 99 07/01/17 11:10 07/01/17 11:10 07/01/17 11:10 07/01/17 11:10 07/01/17 11:10 Intake & Output 07/01/17 07/02/17 07/03/17 06:59 06:59 06:59 Intake Total 4470 Balance 4470 Weight 116.8 kg Exam: GENERAL: well-nourished and in no acute distress. Alert and oriented x3 HEAD: Atraumatic, normocephalic. EYES: Pupils equal round and reactive to light, extraocular movements intact, sclera anicteric, conjunctiva are normal. ENT: TMs normal, nares patent, oropharynx clear without exudates. Moist mucous membranes. No oral ulcerations or bleeding gums noted NECK: supple without lymphadenopathy. Trachea is central. No cervical or axillary lymphadenopathy noted. Carotids are 2+, JVD WNL LUNGS: Respiration seems nonlabored, no significant accessory muscle action noted. Breath sounds clear to auscultation bilaterally and equal noted. No wheezes rales or rhonchi noted. No significant dullness noted on percussion. CHEST: Palpation of the chest wall shows no significant chest wall tenderness. 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 ABDOMEN: Soft, no significant tenderness appreciated, normoactive bowel sounds. No guarding, no rebound. No rigidity noted . No masses appreciated. EXTREMITIES: Pedal pulses are 1-2+, no calf tenderness noted. No clubbing or cyanosis. negative pedal edema noted NEUROLOGICAL: Focused neurological exam showed no significant neurologic deficit. Normal speech, no focal weakness appreciated. PSYCH: Normal mood, normal affect. Judgment and insight within normal limits. SKIN: No significant ecchymosis, skin is noted to be warm. MUSCULOSKELETAL EXAM: No significant acute joint swelling noted. Results Laboratory Results: 07/01/17 06:17 07/01/17 06:17 Creatine Kinase 2128 H EKG Comments: Shows sinus rhythm without any sustained tachycardia or bradycardia Impressions: Chest X-Ray 06/28/17 06:55 IMPRESSION: No acute cardiopulmonary findings. Chest/Abdomen CTA 06/29/17 00:00 IMPRESSION: No acute findings. No CT angio evidence of acute pulmonary emboli to the main, right or left lobar, or proximal segmental pulmonary arteries. Assessment & Plan - Diagnosis (1) Cocaine abuse Is this a current diagnosis for this admission?: Yes (2) Hypertension Qualifiers: Hypertension type: essential hypertension Qualified Code(s): I10 - Essential (primary) hypertension Is this a current diagnosis for this admission?: Yes (3) Rhabdomyolysis Qualifiers: Rhabdomyolysis type: non-traumatic Qualified Code(s): M62.82 - Rhabdomyolysis Is this a current diagnosis for this admission?: Yes (4) Tachycardia Is this a current diagnosis for this admission?: Yes (5) Sleep disorder breathing Is this a current diagnosis for this admission?: Yes (6) Obesity Qualifiers: Obesity type: unspecified obesity type Is this a current diagnosis for this admission?: Yes (7) Abnormal cardiac enzyme level Is this a current diagnosis for this admission?: Yes - Notes Notes: Patient seen in the morning. Was noted to be stable for discharge. This was related to Dr. Alcantar. Lab work reviewed. It shows improvement in all parameters. Tachycardia: Possibly related to cocaine abuse. Hypertension: Continue current regimen. Discussed association of sleep apnea with hypertension. Abnormal cardiac enzymes: This was evaluated with a nuclear stress test which was noted to be negative for pharmacologic stress-induced ischemia. 2D echocardiogram shows normal LVEF. Results were discussed with the patient and his . Their questions were answered. Sleep disordered breathing: Based on patient's body habitus, comorbid diagnosis and symptoms there is high probability of underlying sleep apnea syndrome. Discussed that he will benefit from a sleep study and this will be scheduled as an outpatient. Nuclear stress test results were noted to be negative. These were reviewed with the patient. - Time Time with patient: 15-25 minutes - CODE STATUS was discussed, patient remains full code. Surrogate decision-maker unchanged. Multiple medical problems were addressed. More than 50% of the time spent coordinating care, discussing management plans with involved caregivers. Management plans discussed with involved personnels. Medical decision making was of moderate to high complexity , patient's has multiple comorbidities. Medications reviewed and adjusted accordingly: Yes
[2017-07-04 13:37] LABS: CK MACRO TYPE 1 0 % (Not Observed); CK MACRO TYPE 2 0 % (Not Observed); CK-MB 0 % (0-3); CK-MM 100 % (97-100)
[2017-07-05 06:21] LABS: CK-BB 0 % (0); CREATINE KINASE TOTAL 3943 U/L (24-204)
== END 2017-07-01 13:10 | disposition home or self-care (01) | DRG 558 ==
LOC: ER 06:28 → EH 13:59 → 5 19:09 → OBSVTOIN 06-30 17:09
PROVIDERS: ADMIT Family Medicine; ATTEND Family Medicine
DX: M62.82 Rhabdomyolysis (principal); F14.10 Cocaine abuse, uncomplicated; F17.200 Nicotine dependence, unspecified, uncomplicated; E78.5 Hyperlipidemia, unspecified; I10 Essential (primary) hypertension; R00.0 Tachycardia, unspecified; G47.30 Sleep apnea, unspecified; E66.9 Obesity, unspecified; Z68.38 Body mass index [BMI] 38.0-38.9, adult
CPT/HCPCS: 36415; 71045; 71275; 78452; 80048; 80053; 80307; 81001; 82550; 82552; 82553; 83880; 84439; 84443; 84484; 85025; 85730; 93005; 93010; 93017; 93306; 96361; 96372; 96374; 99291; A9500; G0378; J0280; J1650; J2060; J2785; J7030; Q9969

== ENCOUNTER 2018-10-27 22:33 | Emergency (ER) | payer BC ==
[2018-10-28] MEDS ORDERED: NORMAL SALINE 1000 ML 1,000 ML IV ONE ×2 (01:02→02:21)
--- NOTE | 2018-10-28 01:04 | ER Document Report ---
ED Medical Screen (RME) - General Chief Complaint: General Weakness Stated Complaint: LIGHT HEADED, WEAKNESS Time Seen by Provider: 10/28/18 00:57 Primary Care Provider: GOLDIE CRONIN MD [Primary Care Provider] - Follow up as needed Mode of Arrival: Ambulatory Information source: Patient Notes: 53-year-old man presented to ED for complaint of dizziness weakness dehydration. He states he has been working out in the sun is been severely fatigued today. 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 He states he does have a history of high blood pressure. He states he smokes a third a pack a day and drinks a beer a day does not use any drugs. He is a single man he stated patient is alert oriented respirations regular and unlabored speaking in full sentences and walks with a even steady gait. I have greeted and performed a rapid initial assessment of this patient. A comprehensive ED assessment and evaluation of the patient, analysis of test results and completion of medical decision making process will be conducted by an additional ED providers. TRAVEL OUTSIDE OF THE [place] IN LAST 30 DAYS: No - Related Data Allergies/Adverse Reactions: No Known Allergies Allergy (Unverified 10/04/11 05:34) Past Medical History - Past Medical History Cardiac Medical History: Reports: Hx Hypertension Renal/ Medical History: Denies: Hx Peritoneal Dialysis - Immunizations Hx Diphtheria, Pertussis, Tetanus Vaccination: No Physical Exam - Vital signs Vitals: Temp Pulse Resp BP Pulse Ox 98.5 F 114 H 18 170/108 H 95 10/27/18 22:38 10/27/18 22:38 10/27/18 22:38 10/27/18 22:38 10/27/18 22:38 Course - Vital Signs Vital signs: Temp Pulse Resp BP Pulse Ox 98.5 F 114 H 18 170/108 H 95 10/27/18 22:38 10/27/18 22:38 10/27/18 22:38 10/27/18 22:38 10/27/18 22:38 Doctor's Discharge - Discharge Referrals: GOLDIE CRONIN MD [Primary Care Provider] - Follow up as needed
[2018-10-28 01:56] LABS: ABSOLUTE BASOPHILS # (AUTO) 0.1 10^3/uL (0.0-0.2); ABSOLUTE LYMPHOCYTES (AUTO) 2.7 10^3/uL (0.5-4.7); ABSOLUTE MONOCYTES (AUTO) 0.5 10^3/uL (0.1-1.4); ABSOLUTE NEUT (AUTO) 4.7 10^3/uL (1.7-8.2); BASOPHILS % (AUTO) 1.2 % (0-2); EOSINOPHILS % (AUTO) 0.4 % (0-6); HEMATOCRIT 39.8 % (37.9-51.0); HEMOGLOBIN 13.5 g/dL (13.5-17.0); LYMPHOCYTES % (AUTO) 33.1 % (13-45); MEAN CORPUSCULAR HEMOGLOBIN 31.3 pg (27.0-33.4); MEAN CORPUSCULAR HGB CONC 33.8 g/dL (32.0-36.0); MEAN CORPUSCULAR VOLUME 93 fl (80-97); MONOCYTES % (AUTO) 6.5 % (3-13); PLATELET COUNT 180 10^3/uL (150-450); RED CELL DISTRIBUTION WIDTH 14.8 % (11.5-14.0); SEGMENTED NEUTROPHILS % (AUTO) 58.8 % (42-78); TOTAL CELLS COUNTED % (AUTO) 100 %
[2018-10-28 02:20] LABS: ALBUMIN 4.5 g/dL (3.5-5.0); ALKALINE PHOSPHATASE 67 U/L (38-126); ANION GAP 10 (5-19); ASPARTATE AMINO TRANSFERASE 50 U/L (17-59); BILIRUBIN,DIRECT 0.2 mg/dL (0.0-0.4); BILIRUBIN,TOTAL 0.8 mg/dL (0.2-1.3); BLOOD UREA NITROGEN 19 mg/dL (7-20); CALCIUM 10.1 mg/dL (8.4-10.2); CARBON DIOXIDE 30 mmol/L (22-30); CHLORIDE 104 mmol/L (98-107); CREATINE KINASE 1414 U/L (55-170); GLUCOSE 93 mg/dL (75-110); POTASSIUM 3.6 mmol/L (3.6-5.0); TOTAL PROTEIN 7.4 g/dL (6.3-8.2)
[2018-10-28 02:46] LABS: CREATINE KINASE MB 4.01 ng/mL (<4.55); TROPONIN I < 0.012 ng/mL
[2018-10-28 03:23] LABS: APPEARANCE,URINE CLEAR; BILIRUBIN,URINE NEGATIVE (NEGATIVE); COLOR,URINE YELLOW; GLUCOSE, URINE NEGATIVE (NEGATIVE); KETONES,URINE NEGATIVE (NEGATIVE); LEUKOCYTE ESTERASE,URINE NEGATIVE (NEGATIVE); NITRITE,URINE NEGATIVE (NEGATIVE); PROTEIN,URINE NEGATIVE (NEGATIVE); URINE SPECIFIC GRAVITY 1.029; UROBILINOGEN,URINE NEGATIVE mg/dL (<2.0)
[2018-10-28 04:19] LABS: ANION GAP 7 (5-19); BLOOD UREA NITROGEN 18 mg/dL (7-20); CALCIUM 8.9 mg/dL (8.4-10.2); CARBON DIOXIDE 29 mmol/L (22-30); CHLORIDE 107 mmol/L (98-107); CREATINE KINASE 1318 U/L (55-170); GLUCOSE 86 mg/dL (75-110); POTASSIUM 3.7 mmol/L (3.6-5.0)
[2018-10-28 04:52] VITALS: BP 156/91
--- NOTE | 2018-10-28 05:01 | ER Document Report ---
ED General - General Chief Complaint: General Weakness Stated Complaint: LIGHT HEADED, WEAKNESS Time Seen by Provider: 10/28/18 00:57 Primary Care Provider: GOLDIE CRONIN MD [Primary Care Provider] - Follow up as needed Mode of Arrival: Ambulatory Notes: RME NOTE: 53-year-old man presented to ED for complaint of dizziness weakness dehydration. He states he has been working out in the sun is been severely fatigued today. 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 He states he does have a history of high blood pressure. He states he smokes a third a pack a day and drinks a beer a day does not use any drugs. He is a single man he stated patient is alert oriented respirations regular and unlabored speaking in full sentences and walks with a even steady gait. MY HPI: When I question patient about cocaine use he admits to using cocaine in the past but did not today. States he is also not taking his blood pressure medication in over a week. States he was eating healthier and exercising so he did not feel that he needed it. States he has not followed up with his primary care provider about his blood pressure. States he does have blood pressure medication currently at home. Patient is denying chest pain or respiratory distress. He is denying any vomiting or dysuria. TRAVEL OUTSIDE OF THE [place] IN LAST 30 DAYS: No - Related Data Allergies/Adverse Reactions: No Known Allergies Allergy (Unverified 10/04/11 05:34) Past Medical History - General Information source: Patient - Social History Smoking Status: Current Every Day Smoker Frequency of alcohol use: Heavy Drug Abuse: Cocaine Family History: Reviewed & Not Pertinent, Hypertension Patient has suicidal ideation: No Patient has homicidal ideation: No - Past Medical History Cardiac Medical History: Reports: Hx Hypertension Renal/ Medical History: Denies: Hx Peritoneal Dialysis - Immunizations Hx Diphtheria, Pertussis, Tetanus Vaccination: No Review of Systems - Review of Systems Constitutional: denies: Fever EENT: No symptoms reported Cardiovascular: See HPI Respiratory: No symptoms reported Gastrointestinal: See HPI Genitourinary: No symptoms reported Male Genitourinary: No symptoms reported Musculoskeletal: No symptoms reported Skin: No symptoms reported Hematologic/Lymphatic: No symptoms reported Neurological/Psychological: See HPI Physical Exam - Vital signs Vitals: Temp Pulse Resp BP Pulse Ox 98.5 F 114 H 18 170/108 H 95 10/27/18 22:38 10/27/18 22:38 10/27/18 22:38 10/27/18 22:38 10/27/18 22:38 - Notes Notes: GENERAL: Alert, interacts well. No acute distress. HEAD: Normocephalic, atraumatic. EYES: Pupils equal, round, and reactive to light. Extraocular movements intact. ENT: Oral mucosa moist, tongue midline. NECK: Full range of motion. Supple. Trachea midline. LUNGS: Clear to auscultation bilaterally, no wheezes, rales, or rhonchi. No re spiratory distress. HEART: Regular rate and rhythm. No murmur ABDOMEN: Soft, non-tender. Non-distended. Bowel sounds present in all 4 quadrants. EXTREMITIES: Moves all 4 extremities spontaneously. No edema, normal radial and dorsalis pedis pulses bilaterally. No cyanosis. BACK: no cervical, thoracic, lumbar midline tenderness. No saddle anesthesia, normal distal neurovascular exam. NEUROLOGICAL: Alert and oriented x3. Normal speech. cranial nerves II through XII grossly intact PSYCH: Normal affect, normal mood. SKIN: Warm, dry, normal turgor. No rashes or lesions noted. Course - Re-evaluation Re-evalutation: 10/28/18 04:57 Laboratory 10/28/18 10/28/18 10/28/18 01:40 01:40 01:40 WBC 8.0 RBC 4.30 L Hgb 13.5 Hct 39.8 MCV 93 MCH 31.3 MCHC 33.8 RDW 14.8 H Plt Count 180 Lymph % (Auto) 33.1 [place] % (Auto) 6.5 Eos % (Auto) 0.4 Baso % (Auto) 1.2 Absolute Neuts (auto) 4.7 Absolute Lymphs (auto) 2.7 Absolute Monos (auto) 0.5 Absolute Eos (auto) 0.0 Absolute Basos (auto) 0.1 Seg Neutrophils % 58.8 Sodium 143.6 Potassium 3.6 Chloride 104 Carbon Dioxide 30 Anion Gap 10 BUN 19 Creatinine 1.35 H Est GFR ( Amer) > 60 Est GFR (MDRD) Non-Af 56 L Glucose 93 Calcium 10.1 Total Bilirubin 0.8 Direct Bilirubin 0.2 Neonat Total Bilirubin Not Reportable Neonat Direct Bilirubin Not Reportable Neonat Indirect Bili Not Reportable AST 50 ALT 29 Alkaline Phosphatase 67 Creatine Kinase 1414 H CK-MB (CK-2) 4.01 Troponin I < 0.012 Total Protein 7.4 Albumin 4.5 Urine Color Urine Appearance Urine pH Ur Specific [place] Urine Protein Urine Glucose (UA) Urine Ketones Urine Blood Urine Nitrite Urine Bilirubin Urine Urobilinogen Ur Leukocyte Esterase Urine WBC (Auto) Urine RBC (Auto) U Hyaline Cast (Auto) Squamous Epi Cells Auto Urine Mucus (Auto) Urine Ascorbic Acid 10/28/18 10/28/18 01:40 03:07 WBC RBC Hgb Hct MCV MCH MCHC RDW Plt Count Lymph % (Auto) [place] % (Auto) Eos % (Auto) Baso % (Auto) Absolute Neuts (auto) Absolute Lymphs (auto) Absolute Monos (auto) Absolute Eos (auto) Absolute Basos (auto) Seg Neutrophils % Sodium 143.2 Potassium 3.7 Chloride 107 Carbon Dioxide 29 Anion Gap 7 BUN 18 Creatinine 1.20 Est GFR ( Amer) > 60 Est GFR (MDRD) Non-Af > 60 Glucose 86 Calcium 8.9 Total Bilirubin Direct Bilirubin Neonat Total Bilirubin Neonat Direct Bilirubin Neonat Indirect Bili AST ALT Alkaline Phosphatase Creatine Kinase 1318 H CK-MB (CK-2) Troponin I Total Protein Albumin Urine Color YELLOW Urine Appearance CLEAR Urine pH 5.0 Ur Specific [place] 1.029 Urine Protein NEGATIVE Urine Glucose (UA) NEGATIVE Urine Ketones NEGATIVE Urine Blood NEGATIVE Urine Nitrite NEGATIVE Urine Bilirubin NEGATIVE Urine Urobilinogen NEGATIVE Ur Leukocyte Esterase NEGATIVE Urine WBC (Auto) 3 Urine RBC (Auto) 1 U Hyaline Cast (Auto) 3 Squamous Epi Cells Auto <1 Urine Mucus (Auto) MANY Urine Ascorbic Acid NEGATIVE Patient's initial CK was 1414 with a creatinine of 1.35. After 2 L of fluid patient's CK is down to 1318 with a creatinine of 1.20. In looking back at patient results patient has been to this facility multiple times for an elevation of the CK and admission for rhabdomyolysis and cocaine abuse. Patient's CK is downtrending at this time with a resolution of his elevated kidney function. Patient overall states he feels a lot better. He is denying weakness, dizziness, lightheadedness. I discussed this case with my attending Dr. Rangel who agrees this patient is stable for discharge. At this time will discharge with return precautions and follow-up recommendations. Verbal discharge instructions given a the bedside and opportunity for questions given. Medication warnings reviewed. Patient is in agreement with this plan and has verbalized understanding of return precautions and the need for primary care follow-up in the next 24-72 hours. This medical record was dictated with voice recognizing software. There may be grammatical, syntax errors that are unintended. - Vital Signs Vital signs: Temp Pulse Resp BP Pulse Ox 98.5 F 87 22 H 156/91 H 100 10/27/18 22:38 10/28/18 02:20 10/28/18 04:46 10/28/18 04:46 10/28/18 04:46 - Laboratory Result Diagrams: 10/28/18 01:40 10/28/18 01:40 Laboratory results interpreted by me: 10/28/18 10/28/18 10/28/18 01:40 01:40 01:40 RBC 4.30 L RDW 14.8 H Creatinine 1.35 H Est GFR (MDRD) Non-Af 56 L Creatine Kinase 1414 H 1318 H Discharge - Discharge Clinical Impression: Elevated CK, Dehydration Condition: Stable Disposition: HOME, SELF-CARE Instructions: Dehydration (OM), Cocaine Abuse (OM) Additional Instructions: As we discussed you have been seen and treated in the emergency department for dehydration and elevation your kidney function. You should stay well-hydrated. As we discussed you should also take your m edications as prescribed. You should also refrain from cocaine use. You should follow-up with your primary care provider in the next 24 to 48 hours and return to the emergency room for any further concerns. Referrals: GOLDIE CRONIN MD [Primary Care Provider] - Follow up as needed
--- NOTE | 2018-10-28 07:37 | EKG REPORT ---
SEVERITY:- NORMAL ECG - SINUS RHYTHM : Confirmed by: Christopher Patel MD 28-Oct-2018 07:36:06
== END 2018-10-28 05:15 | disposition home or self-care (01) ==
LOC: ER 22:33
DX: R74.8 Abnormal levels of other serum enzymes (principal); E86.0 Dehydration; R53.1 Weakness; R42 Dizziness and giddiness; R53.83 Other fatigue; F17.210 Nicotine dependence, cigarettes, uncomplicated; F10.10 Alcohol abuse, uncomplicated; I10 Essential (primary) hypertension
CPT/HCPCS: 93005; 99284; 96360; 36415; 82553; 82550; 85025; 80053; 81001; 84484; 93010; J7030